=== PATIENT | male | born 1960 | race Caucasian/White ===

== ENCOUNTER 2021-11-14 15:05 | Emergency (ER) | payer OTHER ==
[2021-11-14 16:31] LABS: HEMOGLOBIN 15.4 gm/dl (14.0-17.5); RED BLOOD COUNT 4.7 M/UL (4.20-5.50); WHITE BLOOD COUNT 12.6 K/UL (4.5-11.0)
[2021-11-14 16:57] LABS: BUN/CREATININE RATIO 14 (0-10)
[2021-11-14] MEDS ORDERED: KATERZIA1 MG/1 ML PO (23:50)
[2021-11-14] MEDS ORDERED: ZOFRAN ODT 4 MG4 MG SL (23:51)
== END 2021-11-15 00:40 | disposition home or self-care (01) ==
LOC: ER1 15:05
PROVIDERS: Emergency Medicine
DX: I10 Essential (primary) hypertension (principal); E78.5 Hyperlipidemia, unspecified
CPT/HCPCS: 70450; 71045; 80053; 82550; 82553; 84484; 85025; 93005; 96372; 99284; J2765